=== PATIENT | male | born 2000 | race Two or more races ===

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

== ENCOUNTER 2020-09-12 21:03 | Emergency (ER) | payer OTHER ==
[~2020-09-12] VITALS: Ht 177.8 cm; Wt 115.2 kg
--- NOTE | 2020-09-12 21:26 | NUR ---
TASK RN: PT. TO ED WITH C/O RLQ ABD PAIN THAT RADIATES TO RIGHT SIDE SINCE SUNDAY LAST WEEK. PT. NINA N/V/D. STATES NORMAL BM'S. DENIES ANY DYSURA. NO PMHX OR SURGICAL HX PER PT. URINE SAMPLE COLLECTED AND SENT TO LAB. DR. HEARD IN TO EVAL PT. AND DISCUSS POC. WARM BLANKET PROVIDED. REPORT TO CURTIS, RN TO ASSUME CARE OF PT.
[2020-09-12 21:31] LABS: MICROSCOPIC AUTO
[2020-09-12] MEDS ORDERED: KETOROLAC 30 MG/1 ML ONE (21:39)
[2020-09-12 21:52] LABS: BASOPHILS % (AUTO) 1 % (0-1); EOSINOPHILS % (AUTO) 2 % (1-7); LYMPHOCYTES % (AUTO) 27 % (22-44); MEAN CORPUSCULAR HEMOGLOBIN 30.9 pg (27.5-34.5); MEAN CORPUSCULAR HGB CONC 35.2 g/dL (33.2-36.2); MEAN PLATELET VOLUME 7.3 fL (7.4-10.4); MONOCYTES % (AUTO) 13 % (2-9); NEUTROPHILS % (AUTO) 57 % (42-75); PLATELET COUNT 299 x10^3/uL (130-400); RED BLOOD COUNT 5.04 x10^6/uL (4.38-5.82); RED CELL DISTRIBUTION WIDTH 12.9 % (9.4-14.8)
[2020-09-12 21:54] LABS: MD NO
[2020-09-12] MEDS ORDERED: KETOROLAC 30 MG/1 ML IM ONE (22:00)
[2020-09-12 22:01] LABS: ALANINE AMINOTRANSFERASE 30 U/L (12-78); ALBUMIN 3.9 g/dL (3.4-5.0); ANION GAP 5 mmol/L (5-15); CALCIUM 8.7 mg/dL (8.5-10.1); CHLORIDE 108 mmol/L (98-107); CREATININE 0.92 mg/dL (0.7-1.3)
[2020-09-12 22:03] LABS: ALKALINE PHOSPHATASE 88 U/L (45-117); BILIRUBIN,TOTAL 0.6 mg/dL (0.2-1.0); TOTAL PROTEIN 8.1 g/dL (6.4-8.2)
[2020-09-12 23:34] VITALS: BP 155/102
== END 2020-09-12 23:35 | disposition home or self-care (01) ==
LOC: ED 22:55
DX: S39.011A Strain of muscle, fascia and tendon of abdomen, initial encounter (principal); R07.89 Other chest pain; F17.210 Nicotine dependence, cigarettes, uncomplicated; X58.XXXA Exposure to other specified factors, initial encounter; Y93.89 Activity, other specified; Y92.89 Other specified places as the place of occurrence of the external cause; Y99.8 Other external cause status
CPT/HCPCS: 36415; 71045; 76700; 80053; 81001; 83690; 85025; 96372; 99285; 99406; J1885